=== PATIENT | male | born 1950 | race American Indian/Alaskan Native ===

== ENCOUNTER 2017-11-26 06:27 | Emergency (ER) | payer MEDICARE, BC ==
[2017-11-26 06:43] VITALS: BP 137/74; PULSE 87; RESP 16; TEMP 98.6; O2SAT 99
[2017-11-26] MEDS ORDERED: Hydrocodone/Acetaminophen 5 mg /300 mg Tab PO STA (07:27)
--- NOTE | 2017-11-26 07:27 | C.PDOC ---
History Of Present Illness 67 y/o male presents to ED with complaints of right foot pain and swelling for 2 days. Patient reports he twisted ankle "several weeks ago" while going down the stairs, but did not have pain at the time (symptoms developed 2 days ago. Patient denies fever, other injury, sensory changes, or any other complaints at this time. Time Seen by Provider: 11/26/17 07:12 Chief Complaint (Nursing): Lower Extremity Problem/Injury History Per: Patient History/Exam Limitations: no limitations Onset/Duration Of Symptoms: Days Current Symptoms Are (Timing): Still Present Severity: Moderate Past Medical History Reviewed: Historical Data, Nursing Documentation, Vital Signs Vital Signs: Last Vital Signs Temp 98.6 F 11/26/17 06:40 Pulse 87 11/26/17 06:40 Resp 16 11/26/17 06:40 BP 137/74 11/26/17 06:40 Pulse Ox 99 11/26/17 08:14 - Medical History PMH: HTN, Hypercholesterolemia, Chronic Kidney Disease Surgical History: No Surg Hx Family History: States: No Known Family Hx - Social History Hx Alcohol Use: No Hx Substance Use: No Review Of Systems Except As Marked, All Systems Reviewed And Found Negative. Constitutional: Negative for: Fever, Chills Cardiovascular: Negative for: Chest Pain Respiratory: Negative for: Cough, Shortness of Breath Musculoskeletal: Positive for: Foot Pain. Negative for: Leg Pain Skin: Negative for: Rash Neurological: Negative for: Weakness, Numbness Physical Exam - Physical Exam Appears: Well, Non-toxic, Other (In moderate pain) Skin: Warm, Dry, No Rash, Other (see extremity exam) Head: Atraumatic, Normacephalic Eye(s): bilateral: Normal Inspection Oral Mucosa: Moist Neck: Supple Cardiovascular: Rhythm Regular Respiratory: Normal Breath Sounds, No Rales, No Rhonchi, No Wheezing Extremity: Tenderness (TTP right foot greatest at Right MTP joint), Capillary Refill (<2 seconds all digits ), No Deformity, Swelling (mild swelling right foot ), Other (Mild diffuse erythema of right foot, greatest at MTP joints) Extremity: Bilateral: Normal ROM Pulses: Left Dorsalis Pedis: Normal, Right Dorsalis Pedis: Normal Neurological/Psych: Oriented x3, Normal Motor, Normal Sensation Gait: Steady ED Course And Treatment O2 Sat by Pulse Oximetry: 99 (RA) Pulse Ox Interpretation: Normal Progress Note: Symptoms suspicious for acute gout. Xray of right foot ordered and reviewed, negative for acute fx/dislocation. Patient given PO Colchicine and Vicodin - unable to take NSAIDs due to impaired renal function. Reevaluation Time: 08:15 Reassessment Condition: Improved (On reassessment, patient's pain has improved and he is ambulating normally in ED. Rxs for Colchicine and Vicodin given. Patient instructed to follow up with PMD in 1-2 days, and understands he should return to ED if symptoms worsen.) Disposition Counseled Patient/Family Regarding: Studies Performed, Diagnosis, Need For Followup, Rx Given - Disposition Referrals: Julee Mayes MD [Staff Provider] - Disposition: HOME/ ROUTINE Disposition Time: 08:15 Condition: STABLE Prescriptions: Colchicine 0.6 mg PO BID #8 tablet Hydrocodone/Acetaminophen [Hydrocodone-Acetamin 5-325 mg] 1 each PO Q6 PRN #12 tablet PRN Reason: PAIN Instructions: Lifestyle Changes to Manage Gout, Gout (DC) Forms: [employer] (Tuvaluan) Print Language: DANISH - Clinical Impression Clinical Impression: Acute gout - Scribe Statement The provider has reviewed the documentation as recorded by the Gayle Youisf All medical record entries made by the Jorgeibroland were at my direction and personally dictated by me. I have reviewed the chart and agree that the record accurately reflects my personal performance of the history, physical exam, medical decision making, and the department course for this patient. I have also personally directed, reviewed, and agree with the discharge instructions and disposition.
[2017-11-26] MEDS ORDERED: Hydrocodone/Acetaminophen 5 mg /300 mg Tab PO ONE (07:33)
--- NOTE | 2017-11-26 14:35 | RAD ---
PROCEDURE: Right Foot Radiographs. HISTORY: right foot pain COMPARISON: None. FINDINGS: BONES: Normal. No fracture. JOINTS: Normal. SOFT TISSUES: Normal. OTHER FINDINGS: None. IMPRESSION: Normal right foot radiographs. Concordant results with the preliminary interpretation rendered by the emergency department physician procedure.
== END 2017-11-26 08:37 | disposition home or self-care (01) ==
LOC: C.ER 06:27
DX: M10.9 Gout, unspecified (principal); E78.00 Pure hypercholesterolemia, unspecified; I12.9 Hypertensive chronic kidney disease with stage 1 through stage 4 chronic kidney disease, or unspecified chronic kidney disease; N18.9 Chronic kidney disease, unspecified